=== PATIENT | male | born 1945 | race Caucasian/White ===

== ENCOUNTER 2024-01-02 01:19 | Inpatient (IN) | payer MEDICARE, OTHER ==
[2024-01-02 01:57] LABS: #Basophils 0.05 10x3/uL (0.0-0.2); %Basophils 0.6 % (0.0-1.0); %Eosinophils 3.8 % (0.0-10.0); %Lymphocytes 42.8 % (21.0-51.0); %Monocytes 6.2 % (0.0-10.0); %Neutrophils 46.3 % (42.0-75.0); Hematocrit 43.8 % (42.0-52.0); Hemoglobin 14.2 g/dL (14.0-18.0); Mean Corpuscular HGB CONC 32.4 g/dL (32.0-36.0); Mean Corpuscular Hemoglobin 29.6 pg (27.0-31.0); Mean Corpuscular Volume 91.3 fL (78.0-98.0); Mean Platelet Volume 10.3 fL (7.4-10.4); Platelet Count 234 10x3/uL (130-400); RBC Distribution Width 15.1 % (11.5-14.5)
[2024-01-02 02:02] LABS: Bacteria/HPF None Seen HPF (None Seen); Bilirubin Negative (Negative); Blood, Urine Negative (Negative); CAUTI Indications for Culture Alt mental st,lethar; Clarity Clear (Clear); Glucose, Urine (Dipstick) Normal (Negative); Ketone, Urine Negative (Negative); Leukocyte Negative Leu/uL (Negative); Nitrite Negative (Negative); Protein, Urine (Dipstick) 30 mg/dL (Neg-Trace); RBC/HPF 0-3 HPF (0-3); Specific Gravity, Urine 1.009 (1.002-1.036); Squamous Epithelial 0-3 HPF (0-3); Urobilinogen Normal mg/dL (Less than 2); WBC/HPF 0-3 HPF (0-3); pH, Urine 5.5 (5.0-9.0)
[2024-01-02 02:04] LABS: Urine Culture Reflex No No
[2024-01-02 02:09] LABS: Amphetamine Not Detected (NotDetected); Barbiturates Screen Not Detected (NotDetected); Benzodiazepine Screen Not Detected (NotDetected); Cocaine Metabolite Screen Not Detected (NotDetected); Methadone Not Detected (NotDetected); Methamphetamine Not Detected (NotDetected); Opiate Screen Not Detected (NotDetected); Oxycodone Screen Not Detected (NotDetected); Phencyclidine (PCP) Not Detected (NotDetected); THC/Cannabinoid Screen Not Detected (NotDetected); Tricyclic Screen Not Detected (NotDetected)
[2024-01-02 02:44] LABS: ALT (SGPT) 12 U/L (8-55); AST (SGOT) 13 U/L (5-34); Acetaminophen Less than 10 mcg/mL (10.0-30.0); Albumin 3.8 g/dL (3.4-4.8); Alcohol Less than 10.0 mg/dL (Less than 10); Alkaline Phosphatase 63 U/L (40-110); Anion Gap 25 mmol/L (10-20); BUN (Urea Nitrogen) 14 mg/dL (8.4-25.7); Bilirubin, Total 1.1 mg/dL (0.2-1.2); CK (CPK) 88 U/L (30-200); Calc. Creatinine Clearance 0 mL/min (70-130); Calcium 9.5 mg/dL (7.8-10.44); Carbon Dioxide 15 mmol/L (23-31); Chloride 98 mmol/L (98-107); Estimated GFR 57; Globulin 2.9 g/dL (2.4-3.5); Glucose 82 mg/dL (83-110); Magnesium 1.5 mg/dL (1.6-2.6); Potassium 3.8 mmol/L (3.5-5.1); Protein, Total 6.7 g/dL (5.8-8.1); Salicylate Less than 8.0 mg/dL (15.0-30.0); Sodium 134 mmol/L (136-145)
[2024-01-02 02:47] LABS: Troponin I 0.016 ng/mL (< 0.028)
[2024-01-02 02:55] LABS: Critical Call Chem-Lactate NUR.RO@0255
[2024-01-02] MEDS ORDERED: Magnesium 2 GM/50 ML BAG (IN WATER) ONE (03:51)
[2024-01-02 05:45] LABS: Lactic Acid 1.6 mmol/L (0.5-2.2)
[2024-01-02] MEDS ORDERED: LORazepam 2 MG/ML SYR.(CARPUJECT) SLOW IVP PRN (07:19)
[2024-01-02 07:36] VITALS: BMI 29.9
[2024-01-02] MEDS ORDERED: Famotidine 20 MG TAB ONE (09:40)
[2024-01-02] MEDS: Famotidine 20 MG TAB PO SCH (09:43)
[2024-01-02] MEDS ORDERED: Enoxaparin 40 MG (0.4 mL) SYRINGE ONE (09:52)
[2024-01-02] MEDS: Enoxaparin 40 MG (0.4 mL) SYRINGE SC SCH (09:55)
[2024-01-02] MEDS ORDERED: Iopamidol 370 76% 100 ML VIAL ONE (09:56)
[2024-01-02] MEDS ORDERED: Glucagon 1 MG/ML KIT IM PRN (12:37)
[2024-01-02] MEDS ORDERED: Dextrose 50% Abboject 50 ML SYRINGE SLOW IVP PRN (12:37)
[2024-01-02] MEDS ORDERED: Insulin Regular 300 UNITS/3 ML VIAL SC PRN (12:37)
[2024-01-02] MEDS ORDERED: Dextrose 5% in Water 1,000 ML IV PRN (12:37)
[2024-01-02] MEDS: Acetaminophen 325 MG TAB PO PRN (16:13)
[2024-01-02] MEDS: Pioglitazone HCl 15 MG TAB PO SCH (20:22)
[2024-01-02] MEDS: Labetalol HCl 100 MG TAB PO SCH (20:24)
[2024-01-02] MEDS: Atorvastatin Calcium 40 MG TAB PO SCH (20:24)
[2024-01-02] MEDS: metFORMIN 500 MG TAB PO SCH (20:24)
[2024-01-03] MEDS: Lorazepam 2 MG/ML VIAL SLOW IVP SCH (00:44)
[2024-01-03] MEDS: Lorazepam 2 MG/ML VIAL IM SCH (01:16)
[2024-01-03] MEDS ORDERED: Electrolyte Replacement Protocol 1 EACH FS SCH (03:30)
[2024-01-03 05:05] LABS: Anion Gap 11 mmol/L (10-20); BUN (Urea Nitrogen) 13 mg/dL (8.4-25.7); Calc. Creatinine Clearance 66 mL/min (70-130); Calcium 9.2 mg/dL (7.8-10.44); Carbon Dioxide 30 mmol/L (23-31); Chloride 101 mmol/L (98-107); Estimated GFR 58; Glucose 110 mg/dL (83-110); Magnesium 1.8 mg/dL (1.6-2.6); Potassium 3.2 mmol/L (3.5-5.1); Sodium 139 mmol/L (136-145)
[2024-01-03 07:45] LABS: Glucose 106 mg/dL (83-110)
[2024-01-03] MEDS: Magnesium 2 GM/50 ML(in water) 2 GM in Premix 1 BAG IVPB SCH (09:49)
[2024-01-03] MEDS: Potassium Chloride 20 MEQ TAB PO SCH ×2 (09:49→13:47)
[2024-01-03] MEDS: glipiZIDE 10 MG TAB PO SCH (09:49)
[2024-01-03] MEDS: metFORMIN 500 MG TAB PO SCH (09:50)
[2024-01-03] MEDS: Aspirin Chewable 81 MG TAB PO SCH (09:50)
[2024-01-03] MEDS: Hydrochlorothiazide 25 MG TAB PO SCH (09:50)
[2024-01-03] MEDS: Losartan 25 MG TAB PO SCH (09:50)
[2024-01-03 11:51] LABS: Glucose 182 mg/dL (83-110)
[2024-01-03 17:54] LABS: Glucose 110 mg/dL (83-110)
[2024-01-03 21:28] LABS: Glucose 123 mg/dL (83-110)
[2024-01-04 05:18] LABS: #Basophils 0.06 10x3/uL (0.0-0.2); %Basophils 0.9 % (0.0-1.0); %Eosinophils 4.3 % (0.0-10.0); %Lymphocytes 32.7 % (21.0-51.0); %Monocytes 9.2 % (0.0-10.0); %Neutrophils 52.8 % (42.0-75.0); Hematocrit 41.5 % (42.0-52.0); Hemoglobin 13.5 g/dL (14.0-18.0); Mean Corpuscular HGB CONC 32.5 g/dL (32.0-36.0); Mean Corpuscular Hemoglobin 28.9 pg (27.0-31.0); Mean Corpuscular Volume 88.9 fL (78.0-98.0); Mean Platelet Volume 10.6 fL (7.4-10.4); Platelet Count 229 10x3/uL (130-400); RBC Distribution Width 15.4 % (11.5-14.5); Red Blood Cell (RBC) Count 4.67 mill/uL (4.70-6.10)
[2024-01-04 05:38] LABS: Anion Gap 11 mmol/L (10-20); BUN (Urea Nitrogen) 11 mg/dL (8.4-25.7); Calc. Creatinine Clearance 76 mL/min (70-130); Calcium 8.5 mg/dL (7.8-10.44); Carbon Dioxide 29 mmol/L (23-31); Chloride 102 mmol/L (98-107); Estimated GFR 68; Glucose 102 mg/dL (83-110); Potassium 3.1 mmol/L (3.5-5.1); Sodium 139 mmol/L (136-145)
[2024-01-04] MEDS: Potassium Chloride 20 MEQ TAB PO SCH (06:45)
[2024-01-04 08:03] LABS: Glucose 100 mg/dL (83-110)
[2024-01-04 08:09] VITALS: TEMP 97.8
[2024-01-04 12:42] VITALS: BP 117/72
== END 2024-01-04 12:52 | disposition home or self-care (01) | DRG 101 ==
LOC: ERS 01:19 → ERHOLD 07:16 → 2SE 11:45
PROVIDERS: ADMIT Student in an Organized Health Care Education/Training Program; ATTEND Hospitalist
PROC: 4A00X4Z Measurement of Central Nervous Electrical Activity, External Approach (ICD-10-PCS; principal; 2024-01-02)
DX: R56.9 Unspecified convulsions (principal); E87.20 Acidosis, unspecified; G30.9 Alzheimer's disease, unspecified; F02.80 Dementia in other diseases classified elsewhere, unspecified severity, without behavioral disturbance, psychotic disturbance, mood disturbance, and anxiety; E11.9 Type 2 diabetes mellitus without complications; I10 Essential (primary) hypertension; E78.5 Hyperlipidemia, unspecified; E83.42 Hypomagnesemia; Z79.82 Long term (current) use of aspirin; Z79.899 Other long term (current) drug therapy; Z79.84 Long term (current) use of oral hypoglycemic drugs; Z90.49 Acquired absence of other specified parts of digestive tract
CPT/HCPCS: 36415; 36416; 51701; 70496; 70498; 70553; 71045; 80048; 80053; 80306; 80307; 81001; 82550; 82947; 83605; 83735; 83880; 84146; 84484; 85025; 93005; 95711; 95819; 96374; J1650; J2060; J3475; Q9967